=== PATIENT | male | born 1965 | race Caucasian/White ===

== ENCOUNTER 2017-01-05 11:49 | Emergency (ER) | payer OTHER ==
[~2017-01-05] VITALS: Ht 180.3 cm; Wt 89.0 kg
[~2017-01-05 11:49] MED LIST: IBUP-1427 PO
[2017-01-05 11:54] VITALS: TEMP 36.6; Ht 180.3 cm; Wt 89.0 kg
[2017-01-05] MEDS ORDERED: PROPARACAINE HCL 0.5% OP SOLN 15 ML BTL ONE (12:02)
[2017-01-05] MEDS ORDERED: CIPROFLOXACIN HCL 0.3% OP SOLN 2.5 ML BTL OP STA (13:18)
[2017-01-05] MEDS ORDERED: CIPR0.3S OP (13:20)
--- NOTE | 2017-01-05 13:21 | EMERGENCY ROOM VISIT NOTE ---
History First contact with patient: 12:15 Chief Complaint: EYE ASSESSMENT Stated Complaint: SOMETHING IN L EYE, POSSIBLY METAL History of Present Illness The patient is a 51 year old male who presents to the Emergency Room via private vehicle accompanied by female with complaints of "something in left eye , possibly metal". 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 He states that he may have gotten something metal in the eye. He states when he woke up there was more discomfort, and some drainage from the eye. His tetanus is NOT up-to- date. He states that unfortunately, the pain persists. Review of Systems A complete 6-point Review of Systems was discussed with the patient, with pertinent positives and negatives listed in the History of Present Illness. All remaining Review of Systems questions can be considered negative unless otherwise specified. Past Medical/Surgical History No pertinent Family History No pertinent Social History Smoking Status: Current Every Day Smoker Pt. lives locally with family Current/Historical Medications Scheduled Ciprofloxacin Hcl (Ophth) (Ciloxan Oph), 1 DROP OP DIRECTED Physical Exam Vital Signs Date Time Temp Pulse Resp B/P (MAP) Pulse Ox O2 Delivery O2 Flow Rate FiO2 01/05/17 13:41 55 16 129/91 98 01/05/17 11:54 36.6 58 18 150/94 94 Room Air Right Eye Acuity: 20/20 Left Eye Acuity: 20/25 affected Physical Exam VITAL SIGNS - Vital signs and nursing notes were reviewed. Stable. GENERAL -51-year-old male appearing his stated age who is in no acute distress. Communicates well with provider and answers questions appropriately. HEAD - Normocephalic, Atraumatic. No Lee's Sign or Raccoon's Eyes. No depressed skull fractures palpable. EYES - PERRL with EOMI bilaterally. Sclera normal without noticeable foreign body or excoriations. Mild bulbar conjunctival injection noted in the left eye. Without subconjunctival hemorrhage. Palpebral conjunctiva pink and moist with no injection or discharge noted. Slit lamp examination performed as further described. . Slit Lamp Examination was performed of the left eye(s). Alcaine drops were applied to the affected eye(s) for proper anesthetization. The affected eye(s) were stained with Fluorescein stain to precipitate adequate visualization of any conjunctival/scleral excoriations or ulcers. The patient's face was comfortably rested on the chin guard of the slit lamp apparatus. The lights were dimmed and the affected eye(s) were thoroughly examined under microscopy using the blue light. no uptake was present in the left eye but a small metallic phuc was seen in the superior portion of the left eye on the cornea. Additionally, the eye(s) were examined under microscopy using the regular light. Close examination revealed small FB. Patient tolerated the procedure well and no complications were met. Medical Decision & Procedures Medications Administered Medications (Trade) Dose Ordered Sig/Vicky Route Start Time Stop Time Status Last Admin Dose Admin Proparacaine HCl (Alcaine 0.5% Oph Soln) 225 drops STK-MED ONCE .ROUTE 01/05/17 12:02 01/05/17 12:03 DC 01/05/17 12:02 225 DROPS Ciprofloxacin HCl (Ciprofloxacin 0.3% Op Soln) 2 drops NOW STAT OP 01/05/17 13:18 01/05/17 13:19 DC 01/05/17 13:31 2 DROPS Diphtheria/ Pertussis/Tetanus Vacc (Adacel Inj) 0.5 ml ONCE ONCE IM. 01/05/17 13:30 01/05/17 13:31 DC 01/05/17 13:31 0.5 ML Medical Decision Patient was seen and evaluated as above. He presents to us today with left eye discomfort. Unenhanced exam reveals a small punctate foreign body. No evidence of anterior chamber disruption. Case was discussed with the attending physician, and the decision was made to utilize the ALGE brush. I did utilize a moistened cotton swab with Alcaine and remove the foreign body without difficulty. The other person was used to remove the rust ring. Patient tolerated this well. He'll be referred to his eye doctor to see tomorrow of which she is to call him. He'll be discharged home on Ciloxan eyedrops. He declined pain medication. Negative Hieu sign. He appears stable for outpatient management. He was educated upon management, educated upon worrisome symptoms in which to return, had questions about management, and was discharged home in good condition. He was given a tetanus immunization. In the evaluation and treatment of this patient, the following differential diagnoses were considered: Corneal Abrasion, Conjunctivitis, Eye Contusion, Globe Injury, Orbital Floor Injury (Blowout Fracture), Corneal Ulcer, Keratitis , Herpes Zoster Opthalmic, Blepharitis, Orbital Cellulitis, Iritis, Scleritis/ Episcleritis, Uveitis, Temporal Arteritis, Subconjunctival Hemorrhage. Impression Primary Impression: Corneal foreign body with residual material Departure Information Dispostion Home / Self-Care Condition GOOD Prescriptions Ciprofloxacin Hcl (Ophth) (CILOXAN OPH) 0.3 % Laura 1 DROP OP DIRECTED, #1 BTL Prov: John Preston PA-C 01/05/17 Referrals Len Ashley M.D. (PCP) Patient Instructions My [facility] Additional Instructions You have been treated in the Emergency Department today for your Corneal Abrasion with rust ring and metal. You have been prescribed Ciloxan eye drops. This is an antibiotic which will help to prevent an infection from developing in your affected eye. You should use 2 drops in the affected eye every 2 hours while awake for the first 2 days, then every 4 hours for the remaining 5 days. This is a total of a 7-day course for these antibiotic eye drops. For pain control, you can use the following [id number] medicines (if >12 yo): - Regular strength (325mg/tab) Tylenol (acetaminophen) 2 tabs every 4-6 hours as needed. Do not exceed 12 tablets in a 24 hour period. Avoid taking more than 3 grams (3000 mg) of Tylenol per day. This includes any other sources of acetaminophen you may take on a regular basis. You should relax in a quiet, dark place for the rest of the day. You should wear sunglasses while outside for the next few days until your eyes are not as sensitive to the light. You should schedule a follow-up appointment in 2-3 days with your Primary Care Provider or established Eye Doctor (Program Admin) for further evaluation and treatment of your Corneal Abrasion. Return to the Emergency Department if your current symptoms worsen despite treatment course outlined above, or if you develop any of the following symptoms : intractable pain, visual disturbances, loss of vision, increased redness, swelling, drainage, or if you develop a fever.
[2017-01-05] MEDS ORDERED: DIPHTHERIA/TETANUS/PERTUSSIS 0.5 ML SYR/VIAL IM. ONE (13:30)
[2017-01-05 13:41] VITALS: BP 129/91; PULSE 55; O2SAT 98
--- NOTE | 2017-01-05 16:16 | EMERGENCY ROOM VISIT NOTE ---
ED Visit Note First contact with patient: 12:15 I have personally evaluated this patient examined her and reviewed the pertinent labs and data. I have discussed the case with John Preston, the physician casting assistant and agree with the plan. Please refer to the PA note. This patient was grinding metal and has a piece of metal in his left eye. This was removed by John . He has a very small residual rust ring. I numbed his eye and used an Vipin brush to remove some of it. There is a still a mild amount of residual. He will follow-up with his percussion tuner will put him on antibiotics and he will return if any new problems or concerns.
== END 2017-01-05 13:35 | disposition home or self-care (01) ==
LOC: C.EDB 11:50 → C.EDD 13:35
DX: T15.02XA Foreign body in cornea, left eye, initial encounter (principal); X58.XXXA Exposure to other specified factors, initial encounter; Z23 Encounter for immunization; F17.200 Nicotine dependence, unspecified, uncomplicated